=== PATIENT | female | born 1975 | race Caucasian/White ===

== ENCOUNTER 2021-08-08 13:36 | Emergency (ER) | payer SELFPAY ==
[~2021-08-08] VITALS: Ht 167 cm; Wt 91.0 kg
[2021-08-08] MEDS ORDERED: LACTATED RINGERS 1,000 ML IV STA (14:07)
[2021-08-08 14:14] LABS: BASOPHILS # (AUTO) 0.1 10^3/uL (0.0-0.1); BASOPHILS % (AUTO) 1 % (0-10); EOSINOPHILS # (AUTO) 0.1 10^3/uL (0.0-0.3); EOSINOPHILS % (AUTO) 2 % (0-10); HEMATOCRIT 38 % (35-52); HEMOGLOBIN 11.7 g/dL (11.5-16.0); LYMPHOCYTES % (AUTO) 33 % (12-44); MEAN CORPUSCULAR HEMOGLOBIN 23 pg (25-34); MEAN CORPUSCULAR HGB CONC 31 g/dL (32-36); MEAN CORPUSCULAR VOLUME 76 fL (80-99); MONOCYTES # (AUTO) 0.6 10^3/uL (0.0-1.0); MONOCYTES % (AUTO) 9 % (0-12); NEUTROPHILS # (AUTO) 3.2 10^3/uL (1.8-7.8); NEUTROPHILS % (AUTO) 54 % (42-75); PLATELET COUNT 312 10^3/uL (130-400); WHITE BLOOD COUNT 5.9 10^3/uL (4.3-11.0)
[2021-08-08] MEDS ORDERED: ONDANSETRON 4 MG/2 ML (SDV) Z0FRAN IVP ONE (14:15)
[2021-08-08 14:17] LABS: POTASSIUM 3.4 MMOL/L (3.6-5.0)
[2021-08-08 14:18] LABS: CALCIUM 8.9 MG/DL (8.5-10.1)
[2021-08-08 14:22] LABS: CREATININE SERUM 0.85 MG/DL (0.60-1.30)
--- NOTE | 2021-08-08 14:25 | ED General ---
General Chief Complaint: COVID19 Suspect/Confirmed Stated Complaint: COVID +,DIZZINESS,SOB,CHURCH,NAUSEA Source of Information: Patient Exam Limitations: No Limitations History of Present Illness Date Seen by Provider: Aug 08, 2021 Time Seen by Provider: 13:50 Initial Comments 46yoF otherwise healthy that was COVID positive on Friday coming in due to body aches, n/v, fever, SOB without CP. Last BM this morning was normal. Taking tylenol which is helping some. Last took 400mg this AM. Otherwise denying any other complaints. Not vaccinated for COVID. Allergies and Home Medications Allergies Coded Allergies: No Known Drug Allergies (Verified Allergy, Unknown, 11/10/08) Patient Home Medication List Home Medication List Reviewed: Yes Ondansetron (Ondansetron Odt) 4 Mg Tab.rapdis, 4 MG PO Q6H PRN for NAUSEA/VOMITING-1ST LINE Prescribed by: KILO QUIROGA on 08/08/21 1653 Review of Systems Review of Systems Constitutional: chills, fever EENTM: No blurred vision Respiratory: cough, short of breath Cardiovascular: No chest pain Gastrointestinal: No abdominal pain; nausea, vomiting Genitourinary: no symptoms reported Musculoskeletal: no symptoms reported Skin: no symptoms reported Psychiatric/Neurological: No Symptoms Reported Hematologic/Lymphatic: No Symptoms Reported Immunological/Allergic: no symptoms reported All Other Systems Reviewed Negative Unless Noted: Yes Past Quhftzd-Qajyfj-Ddneat Hx Patient Social History Tobacco Use?: No Past Medical History Surgeries: No Reproductive Disorders: No Physical Exam Vital Signs Vital Signs - First Documented 08/08/21 13:50 Temp 36.8 Pulse 87 Resp 18 B/P (MAP) 126/89 (101) Pulse Ox 99 Capillary Refill : Height, Weight, BMI Height: 5'6.00" Weight: 162lbs. oz. 73.743046pj; BMI Method: General Appearance: No Apparent Distress, WD/WN Eyes: Bilateral Eye Normal Inspection, Bilateral Eye PERRL HEENT: PERRL/EOMI, Normal ENT Inspection, Pharynx Normal Neck: Full Range of Motion, Normal Inspection, Non Tender, Supple Respiratory: Chest Non Tender, Lungs Clear, Normal Breath Sounds, No Accessory Muscle Use, No Respiratory Distress Cardiovascular: Regular Rate, Rhythm, No Edema, Normal Peripheral Pulses Gastrointestinal: Normal Bowel Sounds, Non Tender, Soft; No Distended, No Guar ding Back: Normal Inspection, No CVA Tenderness, No Vertebral Tenderness Extremity: Normal Capillary Refill, Normal Inspection, Normal Range of Motion, Non Tender, No Calf Tenderness Neurologic/Psychiatric: Alert, No Motor/Sensory Deficits, Normal Mood/Affect Skin: Normal Color, Warm/Dry Lymphatic: No Adenopathy Progress/Results/Core Measures Suspected Sepsis SIRS Temperature: Pulse: Respiratory Rate: Laboratory Tests 08/08/21 14:09: White Blood Count 5.9 Blood Pressure / Mean: Laboratory Tests 08/08/21 14:09: Platelet Count 312 08/08/21 14:10: Creatinine 0.85 Results/Orders Lab Results Laboratory Tests Test 08/08/21 14:09 08/08/21 14:10 Range/Units White Blood Count 5.9 4.3-11.0 10^3/uL Red Blood Count 5.00 3.80-5.11 10^6/uL Hemoglobin 11.7 11.5-16.0 g/dL Hematocrit 38 35-52 % Mean Corpuscular Volume 76 L 80-99 fL Mean Corpuscular Hemoglobin 23 L 25-34 pg Mean Corpuscular Hemoglobin Concent 31 L 32-36 g/dL Red Cell Distribution Width 16.5 H 10.0-14.5 % Platelet Count 312 130-400 10^3/uL Mean Platelet Volume 11.0 9.0-12.2 fL Immature Granulocyte % (Auto) 0 % Neutrophils (%) (Auto) 54 42-75 % Lymphocytes (%) (Auto) 33 12-44 % Monocytes (%) (Auto) 9 0-12 % Eosinophils (%) (Auto) 2 0-10 % Basophils (%) (Auto) 1 0-10 % Neutrophils # (Auto) 3.2 1.8-7.8 10^3/uL Lymphocytes # (Auto) 2.0 1.0-4.0 10^3/uL Monocytes # (Auto) 0.6 0.0-1.0 10^3/uL Eosinophils # (Auto) 0.1 0.0-0.3 10^3/uL Basophils # (Auto) 0.1 0.0-0.1 10^3/uL Immature Granulocyte # (Auto) 0.0 0.0-0.1 10^3/uL Sodium Level 135 135-145 MMOL/L Potassium Level 3.4 L 3.6-5.0 MMOL/L Chloride Level 106 98-107 MMOL/L Carbon Dioxide Level 16 L 21-32 MMOL/L Anion Gap 13 5-14 MMOL/L Blood Urea Nitrogen 14 7-18 MG/DL Creatinine 0.85 0.60-1.30 MG/DL Estimat Glomerular Filtration Rate 71 BUN/Creatinine Ratio 16 Glucose Level 118 H 70-105 MG/DL Calcium Level 8.9 8.5-10.1 MG/DL My Orders Orders - KILO QUIROGA MD Basic Metabolic Panel (08/08/21 14:07) Cbc With Automated Diff (08/08/21 14:07) Ondansetron Injection (Zofran Injectio (08/08/21 14:15) Lactated Ringers (Lr 1000 Ml Iv Solution (08/08/21 14:07) Ed Iv/Invasive Line Start (08/08/21 14:07) Chest 1 View, Ap/Pa Only (08/08/21 14:29) Medications Given in ED Current Medications Medications Dose Ordered Sig/Terrance Route Start Time Stop Time Status Last Admin Dose Admin Ondansetron HCl 4 mg ONCE ONCE IVP 08/08/21 14:15 08/08/21 14:16 DC 08/08/21 14:53 4 MG Vital Signs/I&O 08/08/21 08/08/21 13:50 15:16 Temp 36.8 Pulse 87 87 Resp 18 18 B/P (MAP) 126/89 (101) 119/56 Pulse Ox 99 100 Capillary Refill : Progress Note : Progress Note 46-year-old female with above history coming in due to being Covid positive with vomiting and feeling mildly short of breath. ABCs were intact and vitals were stable on presentation. Specifically, she is 100% on room air even when I ambulate her around the room. An IV was placed and she was given a bolus of IV fluids as well as Zofran for nausea. Chest x-ray ordered and interpreted by me for her shortness of breath and is normal. I believe she is stable for discharge with outpatient follow-up. She was sent home with strict return precautions. Her potassium is slightly low, and I recommended potassium rich foods. Diagnostic Imaging Diagonstic Imaging: Xray Plain Films/CT/US/NM/MRI: chest Comments X-ray chest ordered and interpreted by me showing no acute abnormalities including no obvious pneumonia, pneumothorax, normal cardiac silhouette [facility]. [place], [place] NAME: JOSÉ MIXON [facility] REC#: [id number] PT STATUS: REG ER : 1975 PHYSICIAN: KILO QUIROGA MD ADMIT DATE: 08/08/21/ER Draft Date of Exam:08/08/21 CHEST 1 VIEW, AP/PA ONLY INDICATION: Dizziness and shortness of air with COVID-19 positivity. TIME OF EXAM: 2:56 p.m. COMPARISON: No prior studies are available for comparison. FINDINGS: The heart size is normal. The pulmonary vascularity is unremarkable. The lungs are clear. No infiltrate, effusion or pneumothorax is detected. IMPRESSION: No acute cardiopulmonary process is detected. Dictated on workstation # [id number] Dict: 08/08/21 1455 Trans: 08/08/21 1457 [id number] Interpreted by: SHANI MACKAY MD Electronically signed by: Departure Impression Primary Impression: COVID-19 Additional Impression: Nausea & vomiting Qualified Codes: R11.2 - Nausea with vomiting, unspecified Disposition: 01 HOME, SELF-CARE Condition: Stable Departure-Patient Inst. Decision time for Depature: 15:10 Referrals: NO,LOCAL PHYSICIAN (PCP/Family) Primary Care Physician Patient Instructions: COVID-19 ED, Nausea and Vomiting, Adult Add. Discharge Instructions: You were seen in the emergency department as you are COVID positive having some vomiting and feeling mildly short of breath. Your oxygen is completely normal which is good. We gave you some nausea meds and fluids. I sent some nausea meds to your pharmacy. I recommend you buy a pulse oximeter and check your oxygen whenever you are feeling short of breath. With only your 90% or higher that is good. If you ever 89% or lower, take a seat, thinks in the past, and you cannot get your oxygen to go back up either call 911 or have someone drive you to the emergency department. Scripts Ondansetron (Ondansetron Odt) 4 Mg Tab.rapdis 4 MG PO Q6H PRN for NAUSEA/VOMITING-1ST LINE for 5 Days, #20 TAB Prov: KILO QUIROGA MD 08/08/21 KILO QUIROGA MD Aug 08, 2021 14:25
[2021-08-08] MEDS ORDERED: ONDA4TAB11 PO (14:54)
--- NOTE | 2021-08-08 14:57 | Diagnostic Imaging Report ---
INDICATION: Dizziness and shortness of air with COVID-19 positivity. TIME OF EXAM: 2:56 p.m. COMPARISON: No prior studies are available for comparison. FINDINGS: The heart size is normal. The pulmonary vascularity is unremarkable. The lungs are clear. No infiltrate, effusion or pneumothorax is detected. IMPRESSION: No acute cardiopulmonary process is detected. Dictated by: Dictated on workstation # [id number]
[2021-08-08 15:16] VITALS: BP 119/56
== END 2021-08-08 15:16 | disposition home or self-care (01) ==
LOC: EDUNIT# 13:36 → ER 13:39
DX: U07.1 COVID-19 (principal); R11.2 Nausea with vomiting, unspecified
CPT/HCPCS: 36415; 71045; 80048; 85025